=== PATIENT | female | born 1940 | race Caucasian/White ===

== ENCOUNTER 2018-01-23 23:32 | Inpatient (IN) | payer OTHER ==
[~2018-01-23] VITALS: Ht 162.6 cm; Wt 88.2 kg
[2018-01-24 00:16] LABS: HEMATOCRIT 36.2 % (36.0-46.0); HEMOGLOBIN 11.7 G/DL (11.9-15.5); MCH 32.3 PG (29.0-34.0); MCHC 32.3 G/DL (30.0-36.0); PLATELET COUNT 127 K/uL (156-360); RBC DIS.WIDTH-CV 14.2 % (11.8-14.6); RBC DIS.WIDTH-SD 51.8 % (39-53); RED BLOOD COUNT 3.62 M/uL (3.80-5.20); WHITE BLOOD COUNT 5.4 K/uL (4.1-10.2)
[2018-01-24 00:26] LABS: ALBUMIN 3.8 g/dL (3.2-4.8); CHLORIDE 106 mEq/L (99-109); POTASSIUM 4.1 mEq/L (3.7-5.4); SODIUM 142 mEq/L (136-147)
[2018-01-24 00:28] LABS: GLUCOSE 118 mg/dL (70-99)
[2018-01-24 00:30] LABS: TOTAL BILIRUBIN 1.2 mg/dL (0.0-1.0)
[2018-01-24 00:32] LABS: ALKALINE PHOSPHATASE 70 IU/L (3-129); CREATININE 0.8 mg/dL (0.6-1.3); GFR ESTIMATE (CALCULATED) > 59 mL/min/
[2018-01-24 00:33] LABS: UREA NITROGEN (BUN) 30 mg/dL (9-23)
[2018-01-24 00:34] LABS: AST (GOT) 20 IU/L (2-34)
[2018-01-24 00:35] LABS: ALT (GPT) 8 IU/L (3-49)
[2018-01-24 00:40] LABS: TROP-I INTERPRETATION NEGATIVE; TROPONIN-I < 0.01 ng/mL (0.0-0.30)
[2018-01-24 00:57] LABS: INTER. NORMALIZED RATIO 2.7
[2018-01-24 00:59] LABS: PTT 41.5 SEC (25-37)
[2018-01-24] MEDS ORDERED: ZESTRIL40 MG PO (05:46)
[2018-01-24] MEDS ORDERED: COUMADIN3 MG PO (05:46)
[2018-01-24] MEDS ORDERED: LOPRESSOR50 MG PO (05:47)
[2018-01-24] MEDS ORDERED: PRAVACHOL40 MG PO (05:47)
[2018-01-24] MEDS ORDERED: ASPIRIN81 M2 PO (05:47)
[2018-01-24] MEDS ORDERED: ACID CONTROL150 MG PO (05:48)
[2018-01-24] MEDS ORDERED: CARDIZEM90 MG PO (05:48)
[2018-01-24] MEDS ORDERED: CALCIUM 600 +1 EAC1 PO (05:49)
[2018-01-24] MEDS ORDERED: CELEXA20 MG PO (05:49)
[2018-01-24 06:23] LABS: TROP-I INTERPRETATION NEGATIVE; TROPONIN-I < 0.01 ng/mL (0.0-0.30)
[2018-01-24 07:30] VITALS: BP 176/90
[2018-01-24 08:00] LABS: COMMENTS - BLOOD GASES A+C+; DEVICE NC; O2 FLOW 4 L/MIN; SITE RR; pH 7.41 (7.35-7.45)
[2018-01-24 08:01] LABS: BASE EXCESS 2.3 mEq/L (-3 to +3); BICARBONATE 27.3 mEq/L (22-26); CARBOXY HGB 2.1 % (0-5); METHEMOGLOBIN 1.1 % (0-1.5); PCO2 43 mm Hg (35-45); PO2 62 mm Hg (80-100)
[2018-01-24 10:07] LABS: HEMATOCRIT 36.2 % (36.0-46.0); HEMOGLOBIN 11.3 G/DL (11.9-15.5); MCH 31.2 PG (29.0-34.0); MCHC 31.2 G/DL (30.0-36.0); PLATELET COUNT 119 K/uL (156-360); RBC DIS.WIDTH-CV 14.1 % (11.8-14.6); RBC DIS.WIDTH-SD 52.1 % (39-53); RED BLOOD COUNT 3.62 M/uL (3.80-5.20); WHITE BLOOD COUNT 5.1 K/uL (4.1-10.2)
[2018-01-24 10:19] LABS: INTER. NORMALIZED RATIO 2.9
[2018-01-24 10:27] LABS: TROP-I INTERPRETATION NEGATIVE; TROPONIN-I < 0.01 ng/mL (0.0-0.30)
[2018-01-24 11:27] VITALS: BP 189/74
[2018-01-24] MEDS ORDERED: K-DUR10 MEQ PO (15:57)
[2018-01-24 17:02] VITALS: BP 151/71
[2018-01-24 19:45] VITALS: BP 154/67
[2018-01-24 22:20] VITALS: BP 124/59
[2018-01-24 22:56] LABS: HEMATOCRIT 36.1 % (36.0-46.0); HEMOGLOBIN 11.7 G/DL (11.9-15.5); MCH 31.9 PG (29.0-34.0); MCHC 32.4 G/DL (30.0-36.0); MCV 98.4 FL (83-99); PLATELET COUNT 113 K/uL (156-360); RBC DIS.WIDTH-SD 50.6 % (39-53); RED BLOOD COUNT 3.67 M/uL (3.80-5.20); WHITE BLOOD COUNT 2.5 K/uL (4.1-10.2)
[2018-01-24 23:08] LABS: INTER. NORMALIZED RATIO 2.3
[2018-01-24 23:09] LABS: ALBUMIN 3.7 g/dL (3.2-4.8); CHLORIDE 102 mEq/L (99-109); POTASSIUM 4.2 mEq/L (3.7-5.4); SODIUM 138 mEq/L (136-147)
[2018-01-24 23:12] LABS: GLUCOSE 154 mg/dL (70-99); TOTAL PROTEIN 7.4 g/dL (6.4-8.3)
[2018-01-24 23:13] LABS: TOTAL BILIRUBIN 1.1 mg/dL (0.0-1.0)
[2018-01-24 23:15] LABS: ALKALINE PHOSPHATASE 66 IU/L (3-129); CREATININE 0.8 mg/dL (0.6-1.3); GFR ESTIMATE (CALCULATED) > 59 mL/min/
[2018-01-24 23:16] LABS: UREA NITROGEN (BUN) 29 mg/dL (9-23)
[2018-01-24 23:17] LABS: AST (GOT) 19 IU/L (2-34)
[2018-01-24 23:18] LABS: ALT (GPT) 8 IU/L (3-49)
[2018-01-24 23:24] LABS: TROP-I INTERPRETATION NEGATIVE; TROPONIN-I < 0.01 ng/mL (0.0-0.30)
[2018-01-24 23:58] VITALS: BP 128/60
[2018-01-25 04:25] VITALS: BP 145/72
[2018-01-25 05:40] LABS: HEMATOCRIT 37.6 % (36.0-46.0); HEMOGLOBIN 11.8 G/DL (11.9-15.5); MCHC 31.4 G/DL (30.0-36.0); MCV 98.7 FL (83-99); PLATELET COUNT 131 K/uL (156-360); RBC DIS.WIDTH-SD 50.8 % (39-53); RED BLOOD COUNT 3.81 M/uL (3.80-5.20)
[2018-01-25 05:57] LABS: INTER. NORMALIZED RATIO 1.9
[2018-01-25 06:02] LABS: ALBUMIN 3.9 G/DL (3.2-4.8); ALKALINE PHOSPHATASE 53 IU/L (3-129); ALT (GPT) 6 IU/L (3-49); AST (GOT) 15 IU/L (2-34); CHLORIDE 99 MEQ/L (99-109); CREATININE 0.8 MG/DL (0.6-1.3); GFR ESTIMATE (CALCULATED) > 59 mL/min/; GLUCOSE 150 mg/dL (70-99); POTASSIUM 4.2 MEQ/L (3.7-5.4); SODIUM 136 MEQ/L (136-147); TOTAL BILIRUBIN 0.9 MG/DL (0.0-1.0); TOTAL PROTEIN 7.3 G/DL (6.4-8.3); UREA NITROGEN (BUN) 29 mg/dL (9-23)
[2018-01-25 07:23] VITALS: BP 150/82
[2018-01-25 11:10] VITALS: BP 115/63
[2018-01-25 15:43] VITALS: BP 107/56
[2018-01-25 19:17] VITALS: BP 120/84
[2018-01-25 23:47] VITALS: BP 128/62
[2018-01-26 02:41] LABS: CHLORIDE 101 mEq/L (99-109); SODIUM 136 mEq/L (136-147)
[2018-01-26 02:42] LABS: MAGNESIUM 2.3 mg/dL (1.3-2.7)
[2018-01-26 02:43] LABS: GLUCOSE 155 mg/dL (70-99)
[2018-01-26 02:47] LABS: CREATININE 1.1 mg/dL (0.6-1.3); GFR ESTIMATE (CALCULATED) 51 mL/min/
[2018-01-26 02:48] LABS: UREA NITROGEN (BUN) 38 mg/dL (9-23)
[2018-01-26 03:53] VITALS: BP 116/86
[2018-01-26 06:58] LABS: INTER. NORMALIZED RATIO 1.8
[2018-01-26 07:01] LABS: PTT 29.2 SEC (25-37)
[2018-01-26 07:03] VITALS: BP 129/68
[2018-01-26 07:18] LABS: CHLORIDE 99 MEQ/L (99-109); CREATININE 1.1 MG/DL (0.6-1.3); GFR ESTIMATE (CALCULATED) 51 mL/min/; GLUCOSE 152 mg/dL (70-99); POTASSIUM 4.1 MEQ/L (3.7-5.4); SODIUM 138 MEQ/L (136-147); UREA NITROGEN (BUN) 38 mg/dL (9-23)
[2018-01-26 10:53] LABS: TYPE OF FLUID PLEURAL
[2018-01-26 11:07] LABS: TOTAL PROTEIN 7.3 G/DL (6.4-8.3)
[2018-01-26 11:27] LABS: LACTATE DEHYDROGENASE 153 IU/L (20-246)
[2018-01-26 11:30] LABS: BODY FLUID GLUCOSE 170 MG/DL; BODY FLUID LDH 68 IU/L; BODY FLUID PROTEIN 3.7 G/DL
[2018-01-26 11:52] LABS: APPEARANCE CLEAR; BODY FLUID EOSINOPHILS 0 % (0-25); BODY FLUID RBC'S 3000 /MM^3 (0-100); BODY FLUID WBC'S 207 /MM^3 (0-500); MONONUCLEAR WBC'S 99 %; POLYNUCLEAR WBC'S 1 % (0-25)
[2018-01-26 15:52] VITALS: BP 137/63
[2018-01-26 19:42] VITALS: BP 122/71
[2018-01-26 23:22] VITALS: BP 105/58
[2018-01-27 03:44] VITALS: BP 125/58
[2018-01-27 05:52] LABS: CHLORIDE 99 MEQ/L (99-109); GFR ESTIMATE (CALCULATED) 57 mL/min/; GLUCOSE 161 mg/dL (70-99); POTASSIUM 4.1 MEQ/L (3.7-5.4); SODIUM 138 MEQ/L (136-147); UREA NITROGEN (BUN) 47 mg/dL (9-23)
[2018-01-27 07:48] VITALS: BP 133/65
[2018-01-27 11:52] VITALS: BP 132/61
[2018-01-27] MEDS ORDERED: FUROSEMIDE20 MG PO (13:44)
[2018-01-27] MEDS ORDERED: PREDNISONE10 MG PO (13:45)
[2018-01-27] MEDS ORDERED: LISINOPRIL10 MG PO (14:31)
[2018-01-27] MEDS ORDERED: DUONEB 2.5-0.5 M3 ML AEROSOL (17:09)
== END 2018-01-27 17:38 | disposition home health service (06) | DRG 186 ==
LOC: EME 23:32 → EDOF 01-24 05:12 → ENRESERV 01-24 05:13 → EDOF 01-24 05:24 → ENRESERV 01-24 05:34 → 4SOUTH 01-24 07:06
PROVIDERS: Emergency Medicine; Internal Medicine; Internal Medicine Cardiovascular Disease; Internal Medicine Pulmonary Disease; Nurse Practitioner Adult Health; Physician Assistant Medical
PROC: 0W993ZZ Drainage of Right Pleural Cavity, Percutaneous Approach (ICD-10-PCS; principal; 2018-01-26)
DX: J90 Pleural effusion, not elsewhere classified (principal); J96.20 Acute and chronic respiratory failure, unspecified whether with hypoxia or hypercapnia; I27.81 Cor pulmonale (chronic); I27.29 Other secondary pulmonary hypertension; K92.1 Melena; I48.1 Persistent atrial fibrillation; I48.2 Chronic atrial fibrillation; I11.9 Hypertensive heart disease without heart failure; R41.0 Disorientation, unspecified; I08.2 Rheumatic disorders of both aortic and tricuspid valves; J84.10 Pulmonary fibrosis, unspecified; J44.9 Chronic obstructive pulmonary disease, unspecified; E78.5 Hyperlipidemia, unspecified; R79.89 Other specified abnormal findings of blood chemistry; R63.0 Anorexia; E66.9 Obesity, unspecified; Z99.81 Dependence on supplemental oxygen; I69.311 Memory deficit following cerebral infarction; Z68.32 Body mass index [BMI] 32.0-32.9, adult; I25.10 Atherosclerotic heart disease of native coronary artery without angina pectoris; T65.221A Toxic effect of tobacco cigarettes, accidental (unintentional), initial encounter; I73.9 Peripheral vascular disease, unspecified; J98.11 Atelectasis; K21.9 Gastro-esophageal reflux disease without esophagitis; Z79.01 Long term (current) use of anticoagulants; Z79.82 Long term (current) use of aspirin; Z88.5 Allergy status to narcotic agent; Z82.49 Family history of ischemic heart disease and other diseases of the circulatory system; Z82.5 Family history of asthma and other chronic lower respiratory diseases
CPT/HCPCS: 36600; 70450; 71045; 71046; 76942; 80048; 80048 91; 80053; 82945; 83605; 83615; 83615 91; 83735; 83880; 84155; 84157; 84484; 85027; 85610; 85730; 86850; 86900; 86901; 87070; 87075; 87116; 87205; 87206; 88108; 88305; 89051; 93005; 93306; 94640; 94799; 99281; 99285; C9113; G0378; J1940; J2405; J2920; J2930; J7030

== ENCOUNTER 2018-02-10 19:09 | Emergency (ER) | payer OTHER ==
[~2018-02-10] VITALS: Ht 162.6 cm; Wt 83.0 kg
[~2018-02-10 19:09] MED LIST: ACID CONTROL150 MG PO; ASPIRIN81 M2 PO; CALCIUM 600 +1 EAC1 PO; CARDIZEM90 MG PO; CELEXA20 MG PO; COUMADIN3 MG PO; DUONEB 2.5-0.5 M3 ML AEROSOL; FUROSEMIDE20 MG PO; K-DUR10 MEQ PO; LISINOPRIL10 MG PO; LOPRESSOR50 MG PO; PRAVACHOL40 MG PO; PREDNISONE10 MG PO; ZESTRIL40 MG PO
[2018-02-10 20:36] LABS: BASOPHIL (%) 0.5 % (0-1); EOSINOPHIL (%) 1.4 % (0-5); EOSINOPHIL COUNT 0.1 K/uL (0-0.3); HEMATOCRIT 33.2 % (36.0-46.0); HEMOGLOBIN 10.8 G/DL (11.9-15.5); IMMATURE GRANULOCYTE (%) 0.5 % (0.0-0.7); LYMPHOCYTE (%) 17.4 % (15-42); LYMPHOCYTE COUNT 1.1 K/uL (1.0-2.8); MCH 31.8 PG (29.0-34.0); MCHC 32.5 G/DL (30.0-36.0); MCV 97.6 FL (83-99); MONOCYTE (%) 12.7 % (3-12); MONOCYTE COUNT 0.8 K/uL (0-0.8); NEUTROPHIL (%) 67.5 % (45-76); NEUTROPHIL COUNT 4.4 K/uL (1.8-6.4); PLATELET COUNT 107 K/uL (156-360); RBC DIS.WIDTH-CV 14.1 % (11.8-14.6); RBC DIS.WIDTH-SD 50.8 % (39-53); WHITE BLOOD COUNT 6.5 K/uL (4.1-10.2)
[2018-02-10 20:42] LABS: INTER. NORMALIZED RATIO 2.3
[2018-02-10 20:44] LABS: ALBUMIN 3.6 g/dL (3.2-4.8)
[2018-02-10 20:45] LABS: CHLORIDE 102 mEq/L (99-109); POTASSIUM 4.7 mEq/L (3.7-5.4); SODIUM 137 mEq/L (136-147)
[2018-02-10 20:47] LABS: GLUCOSE 99 mg/dL (70-99); TOTAL PROTEIN 7.1 g/dL (6.4-8.3)
[2018-02-10 20:49] LABS: TOTAL BILIRUBIN 1.3 mg/dL (0.0-1.0)
[2018-02-10 20:50] LABS: ALKALINE PHOSPHATASE 90 IU/L (3-129)
[2018-02-10 20:51] LABS: CREATININE 0.8 mg/dL (0.6-1.3); GFR ESTIMATE (CALCULATED) > 59 mL/min/
[2018-02-10 20:52] LABS: APPEARANCE CLEAR ((CLEAR)); BILIRUBIN NEGATIVE; BLOOD NEGATIVE; COLOR YELLOW ((YELLOW)); GLUCOSE (STRIP) NEGATIVE; KETONES NEGATIVE; LEUKOCYTES NEGATIVE; NITRITE NEGATIVE; PROTEIN (STRIP) NEGATIVE; SPECIFIC GRAVITY 1.011 (1.000-1.030)
[2018-02-10 20:52] LABS: AST (GOT) 27 IU/L (2-34); UREA NITROGEN (BUN) 26 mg/dL (9-23)
[2018-02-10 20:54] LABS: ALT (GPT) 19 IU/L (3-49); CREATINE KINASE 14 IU/L (1-294)
[2018-02-10 20:59] LABS: TROP-I INTERPRETATION NEGATIVE; TROPONIN-I 0.02 ng/mL (0.0-0.30)
[2018-02-10 23:45] VITALS: BP 144/78
== END 2018-02-11 00:16 | disposition home or self-care (01) ==
LOC: EME → EDBD 19:09 → EME 19:09
PROVIDERS: Emergency Medicine
DX: S00.83XA Contusion of other part of head, initial encounter (principal); S09.90XA Unspecified injury of head, initial encounter; S00.31XA Abrasion of nose, initial encounter; W06.XXXA Fall from bed, initial encounter; I48.91 Unspecified atrial fibrillation; Z79.01 Long term (current) use of anticoagulants; F32.9 Major depressive disorder, single episode, unspecified; F41.9 Anxiety disorder, unspecified; I50.9 Heart failure, unspecified; K21.9 Gastro-esophageal reflux disease without esophagitis; Z99.3 Dependence on wheelchair; Z86.73 Personal history of transient ischemic attack (TIA), and cerebral infarction without residual deficits; Z88.5 Allergy status to narcotic agent
CPT/HCPCS: 70450; 72125; 80053; 81003; 82550; 84484; 85025; 85610; 93005; 99281; 99285